=== PATIENT | male | born 1940 | race Caucasian/White ===

== ENCOUNTER 2018-12-06 07:08 | Inpatient (IN) | payer OTHER ==
[2018-12-06] VITALS (13 sets, daily range): BP systolic 129–183; BP diastolic 55–95
[~2018-12-06] VITALS: Ht 175.3 cm; Wt 96.4 kg
[~2018-12-06 07:08] MED LIST: ALLOPURINOL 10100 M1 PO; ALTACE10 M1 PO; AMLODIPINE BESY10 MG PO; ASPIR 8181 MG PO; ASPIRIN325 PO; ASPIRIN81 M2 PO; AZOR 5-40 MG T1 EACH PO; BENICAR40 MG PO; BYSTOLIC 5 MG5 M1 PO; CRESTOR10 MG PO; ELIQUIS5 MG PO; FISH OIL 1,001000 M2 PO; FISH OIL 1,4001 EACH PO; GLUCOPHAGE500 MG PO; GLUCOTROL5 MG PO; HYZAAR 50-12.51 EACH PO; LOPRESSOR25 PO; MAGOX 400400 MG PO; METFORMIN HCL500 MG PO; OMEPRAZOLE40 MG PO; POTASSIUM CITR15 MEQ PO; PROAIR HFA8.5 GM IH; SPIRIVA INH; TRIBENZOR 40-11 EAC1 PO; TUMS PO; VENTOLIN HFA 1818 GM INH; VERAPAMIL E.R240 M1 PO; VISION VITAMIN1 EACH PO; VITAMIN C100 M1 PO; VITAMIN D1000 UNI1 PO; VITAMIN D31000 UNIT PO; VITAMINC500 PO
[2018-12-06 07:36] LABS: ABSOLUTE NEUTROPHILS 4.6 thou/uL (1.4-8.2); BASOPHILS 0.8 % (0.0-2.0); EOSINOPHILS 4.4 % (0.0-3.0); HEMATOCRIT 46.6 % (42.0-52.0); HEMOGLOBIN 15.9 gm/dL (14.0-18.0); LYMPHOCYTES 26.5 % (24.0-44.0); MCH 33.1 pg (26.0-34.0); MCHC 34.2 g/dL (28.0-37.0); MCV 96.7 fL (80.0-100.0); MONOCYTES 10.5 % (1.0-8.0); PLATELET COUNT 207 thou/uL (150-400); POLYS 57.8 % (36.0-66.0); RBC 4.82 mil/uL (4.50-6.00); RDW 14.2 % (10.5-14.5)
[2018-12-06 08:03] LABS: ANION GAP 8 mmol/L (7-16); BUN 24 mg/dL (7-18); CALCIUM 9.3 mg/dL (8.5-10.1); CHLORIDE 105 mmol/L (98-107); CO2 29 mmol/L (21-32); CREATININE 1.6 mg/dL (0.7-1.3); GLUCOSE 149 mg/dL (74-106); POTASSIUM 4.8 mmol/L (3.5-5.1); SODIUM 142 mmol/L (136-145)
[2018-12-06 08:08] LABS: ALBUMIN 4.1 g/dL (3.4-5.0); SGOT 34 U/L (15-37); SGPT 58 U/L (30-65); TOTAL BILIRUBIN 0.8 mg/dL (<0.1-1.0); TOTAL PROTEIN 7.8 g/dL (6.4-8.2); TROPONIN-I <0.06 ng/mL (<0.06)
[2018-12-06 10:35] LABS: APTT 27.1 Seconds (24.5-32.8); PROTIME 10.1 Seconds (9.3-11.4)
--- NOTE | 2018-12-06 12:27 | 2DMMODE ---
[facility] [place] [address] 2 D/M-MODE ECHOCARDIOGRAM Name: JAMIN SANTOS Room #: 210-P [facility] IN M.R.#: [id number] ������������� Admission: 12/06/18 ������������� Attend Phys: Erik Lara, Discharge: ��� ������������� ��� Date of : 40 Date of Service: 12/06/18 1227 �� Report #: [id number] �������� ��������������������������������������������[id number] THIS REPORT FOR: //name// APPROVED REPORT Study performed: 12/06/2018 11:02:29 EXAM: Comprehensive 2D, Doppler, and color-flow Echocardiogram Patient Location: Echo lab Status: routine BSA: 2.08 HR: 63 bpm BP: 132/82 mmHg Rhythm: NSR Other Information Study Quality: Good Indications Chest Pain Hx: [place], stents, CABG, Afib, COPD, HTN, HLP. 2D Dimensions RVDd: 39.24 mm IVSd: 10.54 (7-11mm) LVOT Diam: 20.09 (18-24mm) LVDd: 52.45 mm PWd: 10.10 (7-11mm) Ascending Ao: 35.43 (22-36mm) LVDs: 35.58 (25-40mm) Aortic Root: 33.07 mm Volumes Left Atrial Volume (Systole) Single Plane 4CH: 49.13 mL Single Plane 2CH: 48.99 mL LA ESV Index: 25.00 mL/m2 Aortic Valve AoV Peak Jeffrey.: 1.28 m/s AO Peak Gr.: 6.59 mmHg LVOT Max P.80 mmHg LVOT Max V: 0.98 m/s OSMAN Vmax: 2.41 cm2 Mitral Valve E/A Ratio: 0.8 MV Decel. Time: 225.[address] [facility] [address] [place] [address] 2 D/M-MODE ECHOCARDIOGRAM Name: JAMIN SANTOS Room #: 210-[facility] IN .R.#: [id number] ������������� Admission: 12/06/18 ������������� Attend Phys: Erik Lara, Discharge: ��� ������������� ��� Date of : 40 Date of Service: 12/06/18 1227 �� Report #: [id number] �������� ��������������������������������������������[id number] MV E Max Jeffrey.: 0.60 m/s MV A Jeffrey.: 0.79 m/s MV PHT: 65.45 ms IVRT: 106.11 ms Pulmonary Valve PV Peak Jeffrey.: 0.95 m/s PV Peak Gr.: 3.59 mmHg Pulmonary Vein P Vein S: 0.60 m/s P Vein A: 0.30 m/s P Vein D: 0.46 m/s P Vein A Dur.: 143.0 msec P Vein S/D Ratio: 1.30 Tricuspid Valve TR Peak Jeffrey.: 2.49 m/s RAP Estimate: 5.00 mmHg TR Peak Gr.: 24.84 mmHg PA Pressure: 30.00 mmHg Left Ventricle The left ventricle is normal size. There is normal LV segmental wall motion. There is normal left ventricular wall thickness. Left ventricular systolic function is normal. LVEF is 55-60%. Mild diastolic dysfunction is present (impaired relaxation pattern). Right Ventricle The right ventricle is normal size. The right ventricular systolic function is normal. Atria The left atrium size is normal. The right atrium size is normal. Aortic Valve The aortic valve is normal in structure. No aortic regurgitation is present. There is no aortic valvular stenosis. Mitral Valve Mild mitral annular calcification. Trace mitral regurgitation. No evidence of mitral valve stenosis. Tricuspid Valve The tricuspid valve is normal in structure. Mild tricuspid regurgitation. Estimated PAP is 30mmHg. Pulmonic Valve [address] [address] 2 D/M-MODE ECHOCARDIOGRAM Name: JAMIN SANTOS Room #: 210-[facility] IN .R.#: [id number] ������������� Admission: 12/06/18 ������������� Attend Phys: Erik Lara, Discharge: ��� ������������� ��� Date of : 40 Date of Service: 12/06/18 1227 �� Report #: [id number] �������� ��������������������������������������������[id number] The pulmonary valve is normal in structure. Mild pulmonic regurgitation. Great Vessels The aortic root is normal in size. The ascending aorta is normal in size. IVC is normal in size and collapses >50% with inspiration. Pericardium There is no pericardial effusion. <Conclusion> Left ventricular systolic function is normal. There is normal LV segmental wall motion. LVEF 55-60%. Mild diastolic dysfunction. The aortic valve is normal in structure. No aortic regurgitation or stenosis Mild mitral annular calcification. Trace mitral regurgitation. Mild tricuspid regurgitation. Estimated pulmonary artery pressure of 30mmHg. There is no pericardial effusion. ��������������������������������������������� <ELECTRONICALLY SIGNED> ���������������������������������������� By: Calvin Cadena MD, FACC ��������������������������������������������� 12/06/18 1227 26 26 Calvin Cadena MD, FACC /INF
[2018-12-07 00:32] VITALS: BP 132/74
[2018-12-07 03:31] LABS: CALCIUM 8.5 mg/dL (8.5-10.1); CREATININE 1.5 mg/dL (0.7-1.3); TROPONIN-I 0.07 ng/mL (<0.06)
[2018-12-07 04:01] VITALS: BP 140/79
[2018-12-07 04:40] LABS: HEMATOCRIT 41.8 % (42.0-52.0); HEMOGLOBIN 14.2 gm/dL (14.0-18.0); MCH 32.6 pg (26.0-34.0); MCHC 33.9 g/dL (28.0-37.0); MCV 96.3 fL (80.0-100.0); RBC 4.34 mil/uL (4.50-6.00); RDW 14.2 % (10.5-14.5); WBC 6.8 thou/uL (4.0-11.0)
--- NOTE | 2018-12-07 07:43 | EKG ---
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 : 1940 Requested By: Aracely Serna Order Number: [id number] MD: Calvin Cadena Measurements Intervals [place] Rate: 66 P: 49 ID: [id number] QRS: 97 QRSD: 107 T: 95 QT: 401 QTc: 421 Interpretive Statements Sinus rhythm Abnormal R-wave progression, late transition Nonspecific T abnormalities Compared to ECG 03/10/2015 06:49:51 No significant change was found Electronically Signed On 12-07-2018 7:43:27 CDT by Calvin Cadena [email or web address] ��������������������������������������������� <ELECTRONICALLY SIGNED> ���������������������������������������� By: Calvin Cadena MD, [facility] ��������������������������������������������� 12/07/18 0743 7 7 Calvin Cadena MD, [facility] /EPI
[2018-12-07] MEDS ORDERED: EFFIENT10 MG PO (07:44)
[2018-12-07] MEDS ORDERED: GLUCOTROL5 MG PO (07:44)
[2018-12-07] MEDS ORDERED: BYSTOLIC 5 MG5 M1 PO (07:44)
[2018-12-07] MEDS ORDERED: ASPIR-TRIN325 MG PO (07:44)
--- NOTE | 2018-12-07 08:04 | EKG ---
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1940 Requested By: Ayesha Zaldivar Order Number: [id number] MD: Calvin Cadena Measurements Intervals [place] Rate: 62 P: 68 ME: 202 QRS: 100 QRSD: 108 T: 86 QT: 414 QTc: 421 Interpretive Statements Sinus rhythm Abnormal R-wave progression, late transition Small inferior Q waves Compared to ECG 03/10/2015 06:49:51 No significant change was found Electronically Signed On 12-07-2018 8:03:50 CDT by Calvin Cadena [email or web address] ��������������������������������������������� <ELECTRONICALLY SIGNED> ���������������������������������������� By: Calvin Cadena MD, [facility] ��������������������������������������������� 12/07/18 0803 9 Calvin Cadena MD, [facility] /EPI
[2018-12-07 09:08] VITALS: BP 142/81
[2018-12-07 09:47] VITALS: BP 142/81
--- NOTE | 2018-12-08 17:56 | CATHLAB ---
[facility] [address] [place] [address] INVASIVE PROCEDURE REPORT Name: JAMIN SANTOS Room #: 210-P [facility] IN .R.#: [id number] ������������� Admission: 12/06/18 ������������� Attend Phys: Erik Lara, Discharge: ��� 12/07/18 ������������� ��� Date of : 40 Date of Service: 12/08/18 1755 �� Report #: [id number] �������� ��������������������������������������������[id number] THIS REPORT FOR: //name// APPROVED REPORT Study performed: 12/06/2018 13:06:41 Patient Details Patient Status: Out-Patient Room #: The patient is a 78 year-old male Event Personnel Erik Lara Burning Supervisor, Blanca Gomes RTR, SEMICONDUCTOR DEVELOPMENT TECHNICIAN Monitor, Latoya Last Kline, Tiffany RN law examiner Performed Art Access - R femoral artery* Left Heart Cath Coronaries, Bypass Grafts [id number] LHCCORCABG REJI Place w/wo Plasty Single CIRC 806210 Hemostasis w/ Mynx 05825 Initial Mod Sed Same Phys/QHP Gr5y 800605 61358 Mod Sed Same Phys/QHP Ea [id number] Indication Chest pain Procedure Narrative The patient was brought electively to the Cardiac Catheterization Laboratory and was prepped and draped in a sterile manner. The Right Groin^ was infiltrated with 1% Lidocaine subcutaneous anesthesia. A PINNACLE 6FR Sheath #[id number] sheath was inserted into the RFA^. Coronary angiography was performed using coronary diagnostic catheters. The right coronary system was accessed and visualized with a JR4 catheter. The left coronary system was accessed and visualized with a JL4 catheter. The left ventricle was accessed and visualized with a Pigtail catheter. Left ventriculogram was performed in 30 degree projection. Closure device was deployed with a 6 Fr MYNXGRIP 6/7F #[id number]. Hemostasis was obtained with manual pressure following sheath removal without any complications. The patient tolerated the procedure well and there were no complications associated with the procedure. There was no hematoma. Intraoperative Conscious Sedation Sedation start time: 1315 Case end Time: 1425 Fentanyl 25 mcg Versed [address] [address] INVASIVE PROCEDURE REPORT Name: SERAPEEJAMIN ARIADNA Room #: 210-P [facility] IN ..#: [id number] ������������� Admission: 12/06/18 ������������� Attend Phys: Erik Lara, Discharge: ��� 12/07/18 ������������� ��� Date of : 40 Date of Service: 12/08/18 1755 �� Report #: [id number] �������� ��������������������������������������������[id number] Fluoro Time: 13.48 minutes Dose: DAP 91640.60 cGycm2 1648 mGy Hemodynamics The aortic pressure is 152/71 mmHg with a mean of 100 mmHg. The left ventricular pressure is 156/9 mmHg with a mean of mmHg. The left ventricular end diastolic pressure is 22 mmHg. PCI Technique Lesion Percutaneous coronary intervention was performed on the proximal circumflex artery segment. A LAUNCHER 6FR EBU 4 #[id number] Guide Catheter was used to engage the ostium. A Luge Wire .014 x 182CM #[id number] Interventional Guidewire was used to cross the lesion. BALLOON DILATION A Balloon catheter Sprinter OTW 2.75 x 12 #[id number] was inserted and inflated up to 16.00atm for 30seconds. STENT DEPLOYMENT A drug-eluting stent XIENCE GRAHAM RX 3.25 X 12 #[id number] was inserted and inflated up to 18.00atm for 31seconds. POST STENT DEPLOYMENT BALLOON DILATION A Balloon catheter Euphora NC RX 3.75 x 8 #[id number] was inserted and inflated up to 18.00atm for 29seconds. Conclusion #1 successful PTCA stent of the comanche codominant circumflex 90% lesion to 0% placement of a 3.25 x 12 Graham stent postdilated 3.9 mm in size BRIAN grade 3 flow. Jailing of a large OM with a 60% lesion remains unchanged risk flow #2 left main is moderately disease giving rise to LAD and circumflex. #3 the LAD is moderately disease no high-grade lesion and extensive the apex #4 the CARRILLO to LAD appears to be occluded it may have been taken down but there is no evidence of this graft remaining intact #5 the LEON was reportedly utilized it it does not appear to be supplying any significant myocardium will have to confirm with the bypass report if obtainable #6 the dominant or codominant right system is occluded there is a Wiktor stent filling a marginal branch only #7 the PDA graft is a radial graft which are range widely patent this was extensively filling the distal circumflex OM system prior to the stent placement. [facility] [address] [place] [address] INVASIVE PROCEDURE REPORT Name: JAMIN SANTOS Room #: 210-P [facility] IN M.R.#: [id number] ������������� Admission: 12/06/18 ������������� Attend Phys: Erik Lara, Discharge: ��� 12/07/18 ������������� ��� Date of : 40 Date of Service: 12/08/181754 �� Report #: [id number] �������� ��������������������������������������������[id number] The PDA is now being filled via the circumflex system after placement of the stent in the high-grade circumflex lesion. #8 normal left ventricular size and systolic function EF 50-55% Recommendations and plan: Proceed to CCU to follow post stent protocol. Closure device utilized without complication. Dual antiplatelet therapy to be continued indefinitely. I utilized dual wire technique with jailing of the circumflex OM moderately diseased unchanged post stent procedure ��������������������������������������������� <ELECTRONICALLY SIGNED> ���������������������������������������� By: Erik Lara MD, FACC ��������������������������������������������� 12/08/181754 54 54 Erik Lara MD, FACC /INF
== END 2018-12-07 10:50 | disposition home or self-care (01) | DRG 246 ==
LOC: ER 07:08 → 2N 08:52 → EROBS 08:52 → 2N 09:47 → ENTRNSPT 12-07 10:40 → EDTRNSPTSTS 12-07 10:47 → 2N 12-07 10:50
PROVIDERS: Nurse Practitioner Gerontology; Student in an Organized Health Care Education/Training Program; ADMIT Internal Medicine Cardiovascular Disease
PROC: 027034Z Dilation of Coronary Artery, One Artery with Drug-eluting Intraluminal Device, Percutaneous Approach (ICD-10-PCS; principal; 2018-12-06)
PROC: B2151ZZ Fluoroscopy of Left Heart using Low Osmolar Contrast (ICD-10-PCS; principal; 2018-12-06)
PROC: B2131ZZ Fluoroscopy of Multiple Coronary Artery Bypass Grafts using Low Osmolar Contrast (ICD-10-PCS; principal; 2018-12-06)
PROC: B2181ZZ Fluoroscopy of Left Internal Mammary Bypass Graft using Low Osmolar Contrast (ICD-10-PCS; principal; 2018-12-06)
PROC: 4A023N7 Measurement of Cardiac Sampling and Pressure, Left Heart, Percutaneous Approach (ICD-10-PCS; principal; 2018-12-06)
PROC: B2111ZZ Fluoroscopy of Multiple Coronary Arteries using Low Osmolar Contrast (ICD-10-PCS; principal; 2018-12-06)
DX: I25.10 Atherosclerotic heart disease of native coronary artery without angina pectoris (principal); I50.33 Acute on chronic diastolic (congestive) heart failure; I10 Essential (primary) hypertension; E11.9 Type 2 diabetes mellitus without complications; J44.9 Chronic obstructive pulmonary disease, unspecified; K21.9 Gastro-esophageal reflux disease without esophagitis; M10.9 Gout, unspecified; I48.2 Chronic atrial fibrillation; Z95.5 Presence of coronary angioplasty implant and graft; Z95.1 Presence of aortocoronary bypass graft; Z87.442 Personal history of urinary calculi; Z85.46 Personal history of malignant neoplasm of prostate; Z86.010 Personal history of colon polyps; Z90.49 Acquired absence of other specified parts of digestive tract; Z98.42 Cataract extraction status, left eye; Z98.41 Cataract extraction status, right eye; Z93.6 Other artificial openings of urinary tract status; Z91.041 Radiographic dye allergy status; I25.2 Old myocardial infarction; Z87.891 Personal history of nicotine dependence; Z82.49 Family history of ischemic heart disease and other diseases of the circulatory system; Z79.899 Other long term (current) drug therapy; R07.9 Chest pain, unspecified
CPT/HCPCS: 10081